=== PATIENT | female | born 1940 | race Caucasian/White ===

== ENCOUNTER 2017-01-22 11:30 | Emergency (ER) | payer MEDICARE ==
[~2017-01-22] VITALS: Ht 157.4 cm; Wt 61.2 kg
[~2017-01-22 11:30] MED LIST: ASPIRIN81 M1 PO; ATENOLOL25 MG PO; LISINOPRIL10 MG PO; LUMIGAN 2.5 ML2.5 ML OU; SIMVASTATIN40 MG PO
[2017-01-22] MEDS ORDERED: PREDNISONE10 MG PO (13:21)
== END 2017-01-22 13:24 | disposition home or self-care (01) ==
LOC: ED 11:30
DX: M70.22 Olecranon bursitis, left elbow (principal); Y93.9 Activity, unspecified; R03.0 Elevated blood-pressure reading, without diagnosis of hypertension

== ENCOUNTER → 2017-01-27 | Outpatient (CLI) | payer MEDICARE ==
[~2017-01-27] MED LIST changes: +PREDNISONE10 MG PO
[2017-01-27 14:31] LABS: HEMATOCRIT 41.3 % (37.0-47.0); HEMOGLOBIN 13.3 g/dl (12.0-16.0); MEAN CELL VOLUME 94.1 fl (81.0-99.0); MEAN CORPUSCULAR HGB 30.3 pg (27.0-31.0); MEAN CORPUSCULAR HGB CONC 32.2 g/dl (33.0-37.0); MEAN PLATELET VOLUME 13.3 fl (9.6-12.3); PLATELET COUNT AUTOMATED 185 10*3/uL (130-400); RED BLOOD COUNT 4.39 10*6/uL (4.10-5.10); RED CELL DISTRI WIDTH 13.2 % (0-14.5); WHITE BLOOD COUNT 7.7 10*3/uL (4.8-10.8)
[2017-01-27 14:55] LABS: PLATELET SUFFICIENCY NORMAL (NORMAL); TOTAL CELLS COUNTED 100 #CELLS
== END | disposition home or self-care (01) ==
LOC: ORTHO 01-26 20:37 → LAB 01:48 → ORTHO 01:48
PROVIDERS: Orthopaedic Surgery
DX: R58 Hemorrhage, not elsewhere classified (principal)

== ENCOUNTER 2020-07-18 01:23 | Emergency (ER) | payer MEDICARE ==
[~2020-07-18] VITALS: Ht 160 cm; Wt 67.2 kg
[2020-07-18 01:43] LABS: HEMATOCRIT 24.4 % (37.0-47.0); MEAN CELL VOLUME 71.6 fl (81.0-99.0); MEAN CORPUSCULAR HGB 19.4 pg (27.0-31.0); MEAN PLATELET VOLUME 11.7 fl (9.6-12.3); PLATELET COUNT AUTOMATED 232 10*3/uL (130-400); RED BLOOD COUNT 3.41 10*6/uL (4.10-5.10); WHITE BLOOD COUNT 6.4 10*3/uL (4.8-10.8)
[2020-07-18 01:57] LABS: INTERNATIONAL NORM RATIO 0.9 (2.0-3.5)
[2020-07-18 02:03] LABS: ALBUMIN 3.4 gm/dl (3.1-4.5); CREATININE 1.39 mg/dL (0.55-1.02); POTASSIUM 4.2 mmol/L (3.5-5.1); TOTAL PROTEIN 6.4 gm/dL (6.4-8.2)
[2020-07-18 02:04] LABS: TROPONIN I 1.16 ng/ml (<0.045)
[2020-07-18 02:07] LABS: BASOPHILS 1 % (0-1); MICROCYTOSIS SLIGHT; PLATELET SUFFICIENCY NORMAL (NORMAL); TOTAL CELLS COUNTED 100 #CELLS
[2020-07-18 02:08] LABS: OVALOCYTES FEW
[2020-07-18 02:46] LABS: ACT PARTIAL THROMBO TIME < 20.0 SECONDS (20.0-32.1)
[2020-07-18 03:22] VITALS: BP 95/60
[2020-07-18 03:25] VITALS: BP 98/61
== END 2020-07-18 04:30 | disposition short-term general hospital (02) ==
LOC: ED 01:23
PROVIDERS: Internal Medicine
DX: I21.4 Non-ST elevation (NSTEMI) myocardial infarction (principal); D50.9 Iron deficiency anemia, unspecified; N17.9 Acute kidney failure, unspecified; N18.9 Chronic kidney disease, unspecified; Z79.899 Other long term (current) drug therapy; Z79.82 Long term (current) use of aspirin